=== PATIENT | male | born 1995 | race Two or more races ===

== ENCOUNTER 2024-01-09 05:55 | Emergency (ER) | payer MEDICAID, OTHER ==
[~2024-01-09] VITALS: Ht 180.3 cm; Wt 94.1 kg
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
[2024-01-09 07:03] VITALS: BP 137/76; PULSE 70; RESP 16; TEMP 98.4; O2SAT 98
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
[2024-01-09] MEDS ORDERED: NAPR-746 PO (08:11)
[2024-01-09] MEDS ORDERED: CYCL-837 PO (08:11)
[2024-01-09] MEDS ORDERED: LIDO5DIS21 TOP (08:11)
== END 2024-01-09 08:14 | disposition home or self-care (01) ==
LOC: ER 05:55
DX: M54.50 Low back pain, unspecified (principal); V89.2XXA Person injured in unspecified motor-vehicle accident, traffic, initial encounter; Y93.I9 Activity, other involving external motion; Y92.488 Other paved roadways as the place of occurrence of the external cause; Y99.8 Other external cause status
CPT/HCPCS: 72070; 72100